=== PATIENT | female | born 1960 | race Caucasian/White ===

== ENCOUNTER 2017-12-13 14:59 | Emergency (ER) | payer SELFPAY ==
[~2017-12-13] VITALS: Ht 154.9 cm; Wt 67.6 kg
[~2017-12-13 14:59] MED LIST: AC500T PO; NAPR-243 PO
--- NOTE | 2017-12-13 15:32 | Diagnostic Imaging Report ---
INDICATION: Left knee pain. COMPARISON: None. EXAMINATION: Three views of the left knee were obtained. FINDINGS: Moderate tricompartment degenerative joint disease. There is no fracture or dislocation. No joint effusion is seen. Atherosclerosis is present. IMPRESSION: Degenerative joint disease. Dictated by: Dictated on workstation # [id number]
--- NOTE | 2017-12-13 15:34 | Diagnostic Imaging Report ---
INDICATION: Left foot pain. COMPARISON: None. EXAMINATION: Three views of the left foot were obtained. FINDINGS: No acute fracture or dislocation. Articular surfaces are age-appropriate. Calcaneal osteophytosis is seen. There is no foreign body. IMPRESSION: No fracture or dislocation. Dictated by: Dictated on workstation # [id number]
--- NOTE | 2017-12-13 15:39 | Diagnostic Imaging Report ---
INDICATION: Right ankle injury. COMPARISON: None. EXAMINATION: Three views of the right ankle were obtained. FINDINGS: There is no fracture or dislocation. Calcaneal osteophytosis is seen. There is no foreign body. IMPRESSION: No fracture or dislocation. Dictated by: Dictated on workstation # [id number]
--- NOTE | 2017-12-13 15:40 | ED Lower Extremity ---
General Chief Complaint: Lower Extremity Stated Complaint: LEFT ANKLE, KNEE AND FOOT PAIN Nursing Triage Note: PATIENT TO ER ROOM 7 VIA WHEELCHAIR WITH SPOUSE. PATIENT STATES SHE WAS STEPPING OFF HER PORCH LAST NIGHT AND HER LEFT ANKLE TWISTED. PATIENT STATES HER LEFT KNEE POPPED AND SHE BEGAN HAVING PAIN TO THE LEFT KNEE AND ANKLE RADIATING DOWN INTO THE TOES. PATIENT HAS BRUISING PRESENT TO THE LEFT FOOT AND TOES. PATIENT STATES SHE HAS BEEN AMBULATORY ON IT ALL DAY TODAY BUT IT HAS BEEN DIFFICULT TO WALK ON AND IS PAINFUL. Nursing Sepsis Screen: No Definite Risk Source: patient Exam Limitations: no limitations History of Present Illness Date Seen by Provider: Dec 13, 2017 Time Seen by Provider: 15:01 Initial Comments Patient is a 56-year-old female who presents to the emergency room accompanied by her with reports of left knee, left ankle and left foot pain after twisting her left lower extremity all ambulating down the stairs. She reports feeling a pop in her knee and has ecchymosis to the dorsal surface of her left foot and toes. She is able to ambulate but reports with ambulation. Onset: yesterday Severity: mild Pain/Injury Location: left knee, left foot, left ankle Method of Injury: twisted Modifying Factors: Worse With Movement Allergies and Home Medications Allergies Coded Allergies: No Known Drug Allergies (Unverified , 03/22/11) Home Medications Acetaminophen 500 Mg Tablet, 1,000 MG PO PRN, (Reported) Naproxen 500 Mg Tablet, 1 EACH PO BID - TID PRN Prescribed by: OLEG HINDS on 03/22/11 9758 Patient Home Medication List Home Medication List Reviewed: Yes Review of Systems Constitutional: see HPI; No chills, No fever Musculoskeletal: see HPI, joint pain (left knee, ankle, foot) All Other Systems Reviewed Negative Unless Noted: Yes Past Gtejycy-Qpvsii-Dvzphw Hx Past Med/Social Hx: Reviewed Nursing Past Med/Soc Hx Patient Social History Alcohol Use: Denies Use Recreational Drug Use: No Smoking Status: Current Everyday Smoker Type Used: Cigarettes 2nd Hand Smoke Exposure: No Recent Foreign Travel: No Contact w/Someone Who Travel: No Recent Infectious Disease Expo: No Recent Hopitalizations: No Physical Abuse: No Sexual Abuse: No Mistreated: No Fear: No Seasonal Allergies Seasonal Allergies: No Past Medical History Surgeries: Yes (ANKLE SURGERY 1976) Orthopedic Respiratory: No Cardiac: No Neurological: No Reproductive Disorders: No Gastrointestinal: No Musculoskeletal: Yes Arthritis Endocrine: No HEENT: No Cancer: No Psychosocial: No Integumentary: No Blood Disorders: No Family Medical History Reviewed Nursing Family Hx Physical Exam Vital Signs Vital Signs - First Documented 12/13/17 15:01 Temp 97.7 Pulse 109 Resp 18 B/P (MAP) 173/96 (121) O2 Delivery Room Air Capillary Refill : Less Than 3 Seconds Height, Weight, BMI Height: 5'1.00" Weight: 149lbs. oz. 67.136928ta; BMI Method:Stated General Appearance: WD/WN, no apparent distress Cardiovascular: normal peripheral pulses, regular rate, rhythm, no edema, no gallop, no JVD, no murmur Respiratory: chest non-tender, lungs clear, normal breath sounds, no respiratory distress, no accessory muscle use Knees: left knee normal inspection, left knee normal range of motion, left knee pain Ankles: left ankle pain, left ankle soft tissue tenderness Feet: left foot normal range of motion, left foot ecchymosis (to the dorsal surface and toes), left foot pain, left foot soft tissue tenderness Neurologic/Tendon: normal sensation, normal motor functions, normal tendon functions, responds to pain, no evidence tendon injury, other (normal capillary refill and distal pulses.) Neurologic/Psychiatric: alert, normal mood/affect, oriented x 3 Skin: normal color, warm/dry Progress/Results/Core Measures Results/Orders My Orders Orders - CEDRICK ROSE Knee, Left, 3 Views (12/13/17 15:07) Foot, Left, 3 Views (12/13/17 15:07) Ankle, Left, 3 Views (12/13/17 15:07) Vital Signs/I&O 12/13/17 15:01 Temp 97.7 Pulse 109 Resp 18 B/P (MAP) 173/96 (121) O2 Delivery Room Air Blood Pressure Mean: 121 Departure Impression Primary Impression: Sprain and strain of foot Additional Impression: Sprain of knee Disposition: 01 HOME, SELF-CARE Condition: Stable/Unchanged Departure-Patient Inst. Decision time for Depature: 15:45 Referrals: ANNETTE ALFARO DO (PCP/Family) Primary Care Physician Patient Instructions: Ankle Sprain (DC), Knee Sprain (DC) Add. Discharge Instructions: Take medications as directed. Wear your brace as needed for comfort. Rest, elevation, ice to sore areas at 20 minute intervals. In addition to the hydrocodone you may take ibuprofen for pain relief. Follow-up with her primary care provider within 1 week for recheck. Return back to the emergency room for any worsening symptoms or concerns as needed. All discharge instructions reviewed with patient and/or family. Voiced understanding. Scripts Hydrocodone Bit/Acetaminophen (Hydrocodone/Acetaminophen 5/325mg Tablet) 1 Tab Tab 1 EACH PO Q4-6HR PRN for PAIN-MODERATE MDD 10, #14 TAB Prov: CEDRICK ROSE 12/13/17 CEDRICK ROSE Dec 13, 2017 15:40
[2017-12-13] MEDS ORDERED: ACHD5005 PO (15:47)
[2017-12-13 15:49] VITALS: BP 173/96
== END 2017-12-13 15:52 | disposition home or self-care (01) ==
LOC: EDUNIT# 14:59 → ER 15:01
DX: S86.812A Strain of other muscle(s) and tendon(s) at lower leg level, left leg, initial encounter (principal); S96.911A Strain of unspecified muscle and tendon at ankle and foot level, right foot, initial encounter; X50.1XXA Overexertion from prolonged static or awkward postures, initial encounter
CPT/HCPCS: 73562; 73610; 73630

== ENCOUNTER 2018-03-08 09:30 | Emergency (ER) | payer OTHER ==
[~2018-03-08] VITALS: Ht 154.9 cm; Wt 71.2 kg
[~2018-03-08 09:30] MED LIST changes: +ACHD5005 PO
[2018-03-08] MEDS ORDERED: LIDOCAINE 1% INJ 20 ML 20 ML VIAL ONE (10:15)
--- NOTE | 2018-03-08 10:36 | Diagnostic Imaging Report ---
INDICATION: Trauma, pain to the left fifth finger 3 views of the left hand show an abnormal appearance to the PIP joint of the fifth digit with dorsal dislocation present. A fracture is not evident on these views. No other acute abnormality is seen. IMPRESSION: There is dislocation at the PIP joint of the left fifth digit. Dictated by: Dictated on workstation # [id number]
--- NOTE | 2018-03-08 10:39 | ED Upper Extremity ---
General Chief Complaint: Upper Extremity Stated Complaint: FALL/L HAND 5TH DIGIT DEFORMITY Nursing Triage Note: PT FELL AND HAS DEFORMITY OF L 5TH FINGER Nursing Sepsis Screen: No Definite Risk Source: patient Exam Limitations: no limitations History of Present Illness Date Seen by Provider: Mar 08, 2018 Time Seen by Provider: 10:37 Initial Comments To ER with reports of left fifth finger deformity after falling at work. Onset: just prior to arrival Severity: moderate Pain/Injury Location: left 5th finger Method of Injury: fell Modifying Factors: Worse With Movement Allergies and Home Medications Allergies Coded Allergies: No Known Drug Allergies (Unverified , 03/22/11) Home Medications Acetaminophen 500 Mg Tablet, 1,000 MG PO PRN, (Reported) Hydrocodone Bit/Acetaminophen 1 Tab Tab, 1 EACH PO Q4-6HR PRN for PAIN-MODERATE Prescribed by: CEDRICK ROSE on 12/13/17 1547 Naproxen 500 Mg Tablet, 1 EACH PO BID - TID PRN Prescribed by: OLEG HINDS on 03/22/11 1715 Patient Home Medication List Home Medication List Reviewed: Yes Review of Systems Constitutional: see HPI EENTM: see HPI Respiratory: no symptoms reported Cardiovascular: no symptoms reported Genitourinary: no symptoms reported Musculoskeletal: see HPI Skin: no symptoms reported Psychiatric/Neurological: No Symptoms Reported Past Nkwtrwn-Phsiyi-Kzggjo Hx Patient Social History Type Used: Cigarettes 2nd Hand Smoke Exposure: No Recent Foreign Travel: No Contact w/Someone Who Travel: No Recent Infectious Disease Expo: No Recent Hopitalizations: No Seasonal Allergies Seasonal Allergies: No Past Medical History Surgeries: Yes (ANKLE SURGERY 1976) Orthopedic Respiratory: No Cardiac: No Neurological: No Reproductive Disorders: No Gastrointestinal: No Musculoskeletal: Yes Arthritis Endocrine: No HEENT: No Cancer: No Psychosocial: No Integumentary: No Blood Disorders: No Physical Exam Vital Signs Vital Signs - First Documented 03/08/18 09:42 Temp 97.8 Pulse 97 Resp 18 B/P (MAP) 154/77 (102) Pulse Ox 99 Capillary Refill : Less Than 3 Seconds Height, Weight, BMI Height: 5'1.00" Weight: 157lbs. oz. 71.875396qb; BMI Method:Stated General Appearance: WD/WN, no apparent distress HEENT: PERRL/EOMI, normal ENT inspection Neck: non-tender, full range of motion Respiratory: no respiratory distress, no accessory muscle use Gastrointestinal: normal bowel sounds, non tender Shoulder: normal inspection, non-tender Elbow/Forearm: normal inspection, non-tender Wrist: Yes normal inspection, Yes non-tender Hand: Left, limited ROM (there is deformity of the left fifth finger. There is a dislocation at the PIP joint with the distal aspect posteriorly dislocated) Neurologic/Psychiatric: alert, normal mood/affect, oriented x 3 Skin: normal color, warm/dry Progress/Results/Core Measures Results/Orders My Orders Orders - DANGELO DAVISON APRN Lidocaine 1% Inj 20 Ml (Xylocaine 1% Inj (03/08/18 10:15) Medications Given in ED Current Medications Medications Dose Ordered Sig/Emma Route Start Time Stop Time Status Last Admin Dose Admin Lidocaine HCl 20 ml STK-MED ONCE .ROUTE 03/08/18 10:15 03/08/18 10:20 DC 03/08/18 10:28 10 ML Vital Signs/I&O 03/08/18 09:42 Temp 97.8 Pulse 97 Resp 18 B/P (MAP) 154/77 (102) Pulse Ox 99 Blood Pressure Mean: 102 Departure Communication (Admissions) Digital block was done using 2 mL of 2% lidocaine without epinephrine. Finger was then reduced. She maintains full ability to flex her finger all the way but with any extension it re-dislocates. We'll place her in a splint for 2 weeks. If she has recurrent dislocation she'll follow up with hand surgeon Impression Primary Impression: Finger dislocation Qualified Codes: S63.259A - Unspecified dislocation of unspecified finger, initial encounter Disposition: 01 HOME, SELF-CARE Condition: Stable Departure-Patient Inst. Decision time for Depature: 10:38 Referrals: DEEPA MORALEZ,LOCAL PHYSICIAN (PCP) Primary Care Physician Patient Instructions: Finger Dislocation Add. Discharge Instructions: 1. Return to ER for any concerns 2. Wear the splint at all times for the next 2 weeks. Follow-up with occupational health. If you have recurrent dislocations, if you're unable to reduce this at home and then come to the emergency room to have it reduced. Then you need to follow up with hand surgeon. All discharge instructions reviewed with patient and/or family. Voiced understanding. DANGELO DAVISON APRN Mar 08, 2018 10:39
[2018-03-08 10:50] VITALS: BP 154/77
== END 2018-03-08 11:04 | disposition home or self-care (01) ==
LOC: EDUNIT# 09:30 → ER 09:32
DX: S63.277A Dislocation of unspecified interphalangeal joint of left little finger, initial encounter (principal); Z98.890 Other specified postprocedural states; W19.XXXA Unspecified fall, initial encounter; Y92.59 Other trade areas as the place of occurrence of the external cause; Y99.0 Civilian activity done for income or pay
CPT/HCPCS: 29130; 73130